=== PATIENT | female | born 1980 | race Caucasian/White ===

== ENCOUNTER 2020-03-12 09:56 | Inpatient (IN) | payer BC, OTHER ==
[2020-03-12] MEDS ORDERED: CARBOPROST TROMETHAMINE 250 MCG/ML 1 ML AMP IM PRN (11:02)
[2020-03-12] MEDS ORDERED: METHYLERGONOVINE 0.2 MG/ML 1 ML AMP IM PRN (11:02)
[2020-03-12] MEDS ORDERED: LIDOCAINE 0.5% (PF) 5 MG/ML (50 ML SDV) SQ PRN (11:02)
[2020-03-12] MEDS ORDERED: PENICILLIN G POTASSIUM 5,000,000 UNIT in DEXTROSE 5% IN WATER 100 ML IVPB STA ×2 (11:02)
[2020-03-12] MEDS ORDERED: OXYTOCIN 10 UNIT/ML 1 ML VIAL IM PRN (11:02)
[2020-03-12] MEDS ORDERED: TERBUTALINE 1 MG/ML VIAL SQ PRN (11:02)
[2020-03-12 12:03] LABS: Basophils % (A) 0 %; Eosinophils # (A) 0.1 k/uL (0-0.7); Eosinophils % (A) 1 %; HCT 37.5 % (34.0-46.0); HGB 13.2 gm/dL (11.4-16.0); Lymphocytes # (A) 1.5 k/uL (1.0-4.8); Lymphocytes % (A) 16 %; MCH 33.2 pg (25.0-35.0); MCHC 35.2 g/dL (31.0-37.0); MCV 94.2 fL (80.0-100.0); Mean Platelet Volume 10.8; Monocytes # (A) 0.5 k/uL (0-1.0); Monocytes % (A) 6 %; Neutrophils # (A) 6.6 k/uL (1.3-7.7); Neutrophils % (A) 74 %; Platelet Count 132 k/uL (150-450); RBC 3.98 m/uL (3.80-5.40); RDW 13.6 % (11.5-15.5); WBC 8.8 k/uL (3.8-10.6)
[2020-03-12] MEDS ORDERED: BUTORPHANOL 1 MG/ML 1 ML VIAL IV PRN (12:12)
--- NOTE | 2020-03-12 12:20 | P.HPOB ---
History of Present Illness H&P Date: 03/12/20 Chief Complaint: 39 and one sevenths weeks, spontaneous rupture of membranes The patient is a 39-year-old 1 para 0 admitted at 39 and one sevenths weeks as established by last menstrual period and confirmed by second trimester ultrasound. She is admitted with documented spontaneous rupture of membranes for clear fluid. Her has been essentially uncomplicated. 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 She is also known to be group B strep positive. On admission, all signs reassuring. Obstetrical history: 1 para 0 with current statistics listed in history of present illness. EDC of 03/18/2020 was established by last menstrual period and confirmed by second trimester ultrasound. Laboratory workup demonstrates a blood type of O+ with a negative antibody screen. Rubella status is immune. Remainder of the laboratory workup was within normal limits. Early Glucola as well as second trimester Glucola were within normal limits and group B strep status is positive. Gynecologic history: Unremarkable with no history of any infections to include STDs though she does have remote history of HSV for which she has had no outbreaks during the as noted in history of present illness. Review of Systems Review of systems is confined to history of present illness. Past Medical History Past Medical History: No Reported History History of Any Multi-Drug Resistant Organisms: None Reported Past Surgical History: No Surgical Hx Reported Past Anesthesia/Blood Transfusion Reactions: No Reported Reaction Smoking Status: Never smoker - Past Family History Father Family Medical History: No Reported History Medications and Allergies Allergies Allergy/AdvReac Type Severity Reaction Status Date / Time Unable to Assess Allergy Verified 03/12/20 11:02 Exam Vital Signs Temp Pulse Resp BP Pulse Ox 03/12/20 11:00 97.7 F 83 18 115/76 99 03/12/20 10:25 97.7 F 83 18 160/69 99 Intake and Output 03/11/20 03/12/20 03/12/20 22:59 06:59 14:59 Other: Weight 85.729 kg In general, this is a well-developed, well-nourished white female in no acute distress. Her heart has a regular rhythm and rate without murmur. Her lungs are clear to auscultation bilaterally in all simons. Her abdomen is gravid, non distended, has normal active bowel sounds, is soft, nontender, and without any palpable masses, hepatosplenomegaly, hernias. Her extremities are without any cyanosis, clubbing, or significant edema and are nontender to palpation bilaterally. Digital cervical examination at the time of admission demonstrates her cervix to be 2 cm dilated, 70% effaced, with the vertex in presentation at - 2 station. Spontaneous rupture of membranes is confirmed. Results Result Diagrams: 03/12/20 10:49 Abnormal Lab Results - Last 24 Hours (Table) 03/12/20 Range/Units 10:49 Plt Count 132 L (150-450) k/uL Assessment and Plan (1) Group B streptococcal infection in Current Visit: Yes Status: Acute Code(s): O98.819 - OTH MATERNAL INFEC/PARASTC DISEASES COMP PREG, UNSP TRI; B95.1 - STREPTOCOCCUS, GROUP B, CAUS ING DISEASES CLASSD [id number] SNOMED Code(s): 526057864 (2) Spontaneous rupture of amniotic membranes Current Visit: Yes Status: Acute Code(s): GXK0228 - SNOMED Code(s): 443274261 Plan: Antibiotic prophylaxis has been started for group B strep. As she has had spontaneous rupture of membranes, we will await the onset of labor on its own for approximately 2-3 hours. Should no labor begin, Pitocin augmentation will be started. The patient will continue to have close maternal and surveillance and expectant management will be practiced. She is a good candidate for either IV or epidural analgesia, whichever she may choose.
[2020-03-12] MEDS ORDERED: OXYTOCIN 30 UNITS/500 ML NS 30 UNIT in SALINE 1 500ML.BAG IV SCH (14:30)
[2020-03-12] MEDS: LACTATED RINGERS 1,000 ML IV SCH ×2 (15:00→17:05)
[2020-03-12] MEDS: PENICILLIN G POTASSIUM 2,500,000 UNIT in DEXTROSE 5% IN WATER 100 ML IVPB SCH ×4 (15:14→19:35)
[2020-03-12] MEDS ORDERED: fentaNYL (PF) 50 MCG/ML 5 ML AMP ONE (16:31)
[2020-03-12] MEDS ORDERED: SODIUM CHLORIDE 0.9% 100 ML BAG ONE (16:31)
[2020-03-12] MEDS ORDERED: ROPIVACAINE 5MG/ML 20ML VIAL ONE (16:31)
[2020-03-12] MEDS ORDERED: LACTATED RINGERS 1,000 ML IV ONE (23:58)
[2020-03-12] MEDS ORDERED: CITRIC ACID-SODIUM CITRATE 15 ML CUP PO ONE (23:58)
[2020-03-13] MEDS ORDERED: MORPHINE SULFATE (PF) 0.3 MG/0.3 ML SYR ONE (00:04)
[2020-03-13] MEDS ORDERED: ONDANSETRON 4 MG/2 ML VIAL ONE (00:04)
[2020-03-13] MEDS ORDERED: OXYTOCIN 10 UNIT/ML 1 ML VIAL ONE (00:04)
[2020-03-13] MEDS ORDERED: KETOROLAC 30 MG/ML 1 ML VIAL ONE (00:04)
[2020-03-13] MEDS ORDERED: DEXAMETHASONE SOD PHOSPHATE 10 MG/ML 1 ML VIAL ONE (00:04)
[2020-03-13] MEDS ORDERED: ONDANSETRON 4 MG/2 ML VIAL IVP PRN (01:05)
[2020-03-13] MEDS ORDERED: diphenhydrAMINE 50 MG CAP PO PRN (01:05)
[2020-03-13] MEDS ORDERED: diphenhydrAMINE 50 MG/ML 1 ML VIAL IVP PRN ×2 (01:05)
[2020-03-13] MEDS ORDERED: ZOLPIDEM 5 MG TAB PO PRN (01:05)
[2020-03-13] MEDS ORDERED: diphenhydrAMINE 25 MG CAP PO PRN (01:05)
[2020-03-13] MEDS ORDERED: SIMETHICONE 80 MG CHEWABLE PO PRN (01:05)
[2020-03-13] MEDS ORDERED: ACETAMINOPHEN TAB 325 MG TAB PO PRN (01:05)
[2020-03-13] MEDS ORDERED: METOCLOPRAMIDE 5 MG/ML 2 ML VIAL IVP PRN (01:05)
[2020-03-13] MEDS ORDERED: HYDROcodone/APAP 5-325MG 1 EACH TAB PO PRN (01:05)
[2020-03-13] MEDS ORDERED: LANOLIN CREAM 5 GM TUBE TOPICAL PRN (01:05)
[2020-03-13] MEDS ORDERED: KETOROLAC 30 MG/ML 1 ML VIAL IVP PRN (01:05)
[2020-03-13] MEDS ORDERED: NALOXONE 0.4 MG/ML 1 ML VIAL IV PRN (01:05)
--- NOTE | 2020-03-13 01:14 | P.OP ---
Date of Procedure: 03/13/20 Preoperative Diagnosis: #1. 39-3/7 weeks, spontaneous rupture, labor #2. Advanced maternal age #3. Group B strep colonization #4. Arrest of descent #5. right occiput transverse Postoperative Diagnosis: Same Procedure(s) Performed: #1. Primary low-transverse section Anesthesia: epidural Surgeon: Waldemar Malloy Barker Operator #1: Rebecca Owens Estimated Blood Loss (ml): 600 IV fluids (ml): 900 Urine output (ml): 200 Pathology: none sent Condition: stable Disposition: floor Operative Findings: Preoperatively, the patient had reached complete after a significantly slow active phase of labor. She pushed for approximately 1-1/2-2 hours and brought the head to approximately 0 to perhaps +1 station where it arrested for 30-45 minutes. The head was felt to be in the right occiput transverse position and the patient was felt to have a slightly contracted pelvis. Given these findings, we discussed options and the patient opted to proceed with primary low-transverse section. She was taken to the operating room where she was delivered of a viable 7 lbs. 8 oz. baby boy with Apgars of 8 at 1 minute and 9 at 5 minutes delivered in the right occiput transverse position. The cord was relatively short. The placenta was delivered manually, intact, and grossly normal with a grossly normal though short three-vessel cord. The uterus, tubes, and ovaries were entirely normal to inspection. Description of Procedure: The patient was prepped and draped in usual fashion after epidural anesthesia was bolused by the anesthesiologist. A Pfannenstiel incision was made and extended into the abdominal cavity without difficulty. The bladder peritoneum was elevated, incised, and reflected distally. A 2 cm incision was made in the transverse plane of the lower uterine segment to enter the uterus at which time clear fluid was noted. The head was encountered deep within the pelvis in the right occiput transverse position, elevated up and through the incision where the nose and mouth were thoroughly suctioned. Remainder of the infant was delivered onto the field where the nose and mouth were again thoroughly suctioned and the cord was doubly clamped, cut, and the passed for resuscitative measures with weight and Apgars as noted above. The placenta was delivered manually and intact as noted above. The uterus was exteriorized and the interior cavity of uterus swept of any remaining placental or membranous fragments per the margins of the incision were grasped with Cronin clamps and the incision closed in 2 layers. The first layer was a running locking stitch of 0 chromic catgut followed by a running imbricating stitch of 0 chromic catgut. The posterior cul-de-sac was suctioned using a guard and the uterus and ovaries were entirely normal to inspection as were the tubes bilaterally. Uterus was replaced within the abdominal cavity and the gutters swept of any remaining blood, fluid, or clot. The incision was reexamined and found to have some bleeding at the right angle of the incision which was made hemostatic with a avdlnv-ya-mzkny stitch of 0 chromic catgut. At that point, hemostasis was noted to be excellent. The parietal peritoneum was loosely reapproximated and layer of muscles examined and found to be hemostatic. The fascia was closed with 2 running stitches of 0 Vicryl beginning at each margin and meeting in the midline. The subcutaneous tissues were irrigated, made hemostatic with the Bovie, and closed with a running stitch of 30 plain catgut. The skin was reapproximated with a running subcuticular stitch of 4-0 Vicryl from margin to margin followed by half-inch Steri-Strips placed with Mastisol. Estimated blood loss for the case was approximately 600 mL. There were no complications. All sponge, instrument, needle counts were correct. Both mother and are resting comfortably in recovery.
[2020-03-13] MEDS ORDERED: OXYTOCIN 20 UNITS/1000 ML NS 1,000 ML IV SCH (01:15)
[2020-03-13 01:31] VITALS: RESP 16
[2020-03-13] MEDS: PENICILLIN G POTASSIUM 2,500,000 UNIT in DEXTROSE 5% IN WATER 100 ML IVPB SCH ×2 (01:55)
[2020-03-13] MEDS: LACTATED RINGERS 1,000 ML IV SCH ×2 (01:56→09:09)
[2020-03-13] MEDS: IBUPROFEN 600 MG TAB PO PRN (16:50)
[2020-03-13] MEDS: SENNOSIDES-DOCUSATE SODIUM 1 EACH TAB PO SCH (20:25)
[2020-03-14] MEDS: HYDROcodone/APAP 7.5-325MG 1 EACH TAB PO PRN ×2 (05:58→13:11)
[2020-03-14 06:07] LABS: Basophils % (A) 0 %; Eosinophils # (A) 0.1 k/uL (0-0.7); Eosinophils % (A) 1 %; HCT 27.2 % (34.0-46.0); Lymphocytes # (A) 1.6 k/uL (1.0-4.8); Lymphocytes % (A) 16 %; MCH 32.8 pg (25.0-35.0); MCHC 34.3 g/dL (31.0-37.0); MCV 95.7 fL (80.0-100.0); Mean Platelet Volume 10.3; Monocytes # (A) 0.4 k/uL (0-1.0); Monocytes % (A) 4 %; Neutrophils # (A) 7.8 k/uL (1.3-7.7); Neutrophils % (A) 78 %; Platelet Count 120 k/uL (150-450); RBC 2.84 m/uL (3.80-5.40); RDW 13.8 % (11.5-15.5)
[2020-03-14 06:14] LABS: HGB 9.3 gm/dL (11.4-16.0)
--- NOTE | 2020-03-14 07:30 | P.PN ---
Progress Note - Text Progress Note Date: 03/14/20 Postoperative day 1 status post section under epidural anesthesia, and epidural morphine given for postoperative analgesia, patient doing well, there is no anesthesia related complications, Patient had no headache, vital signs stable , Assessment and plan= postop day 1 status post , doing well there is no anesthesia related complication. note= patient was seen at 06:45 today.
[2020-03-14 07:52] VITALS: TEMP 98.3
[2020-03-14] MEDS: SENNOSIDES-DOCUSATE SODIUM 1 EACH TAB PO SCH (07:58)
--- NOTE | 2020-03-14 08:24 | P.PNOBGPC ---
Subjective - Subjective Principal diagnosis: POD 1 LTCS Interval history: Patient is doing well. She is ambulating and voiding without difficulty. She is tolerating a regular diet without nausea or vomiting. She is slightly more painful this morning but pain medication is helping this a.m. Lochia is minimal. She is breast-feeding without difficulty. We are considering discharge home early evening, as she is not sleeping well here. Patient reports: Reports appetite normal, Reports voiding normally, Reports pain well controlled, Reports ambulating normally : doing well, nursing well Objective - Vital Signs Latest vital signs: Vital Signs Temp Pulse Resp BP Pulse Ox 03/14/20 07:50 98.3 F 97 16 118/66 97 03/14/20 00:00 98.0 F 104 H 16 129/74 98 03/13/20 20:00 98.0 F 98 16 116/67 03/13/20 17:00 98.3 F 110 H 16 121/64 98 03/13/20 12:00 98.0 F 94 16 128/80 97 Intake and Output 03/13/20 03/14/20 03/14/20 22:59 06:59 14:59 Output Total 650 Balance -650 Output: Urine 650 Other: # Voids 1 1 1 - Exam Extremities: Present: normal, edema Abdomen: Present: normal appearance Incision: Present: normal, dry, intact - Labs Labs: Abnormal Lab Results - Last 24 Hours (Table) 03/14/20 Range/Units 05:56 RBC 2.84 L (3.80-5.40) m/uL Hgb 9.3 L D (11.4-16.0) gm/dL Hct 27.2 L (34.0-46.0) % Plt Count 120 L (150-450) k/uL Neutrophils # 7.8 H (1.3-7.7) k/uL Assessment and Plan (1) Advanced maternal age (AMA) in Current Visit: Yes Status: Acute Code(s): IYA2176 - SNOMED Code(s): 763330119 (2) Arrest of descent, delivered, current hospitalization Current Visit: Yes Status: Acute Code(s): O62.1 - SECONDARY UTERINE INERTIA SNOMED Code(s): 61060147 (3) malposition, delivered, current hospitalization Current Visit: Yes Status: Acute Code(s): O32.9XX0 - MATERNAL CARE FOR MALPRESENTATION OF FETUS, UNSP, UNSP SNOMED Code(s): 524851889 (4) Group B streptococcal infection in Current Visit: Yes Status: Acute Code(s): O98.819 - OTH MATERNAL INFEC/PARASTC DISEASES COMP PREG, UNSP TRI; B95.1 - STREPTOCOCCUS, GROUP B, CAUSING DISEASES CLASSD ELSR SNOMED Code(s): 447518818 (5) Herpes genitalis in women Current Visit: Yes Status: Acute Code(s): A60.09 - HERPESVIRAL INFECTION OF OTHER UROGENITAL TRACT SNOMED Code(s): 625154492 (6) S/P section Current Visit: Yes Status: Acute Code(s): Z98.891 - HISTORY OF UTERINE SCAR FROM PREVIOUS SURGERY SNOMED Code(s): 224344801 (7) Spontaneous rupture of amniotic membranes Current Visit: Yes Status: Acute Code(s): DYQ5884 - SNOMED Code(s): 757020072 Plan: This 39-year-old 1 now para 1 is overall doing well postoperatively. She is ambulating and voiding without difficulty and I do feel she is stable for discharge home. She is going to work on breast-feeding today, we will assess her pain later this afternoon and consider discharge home early evening.
[2020-03-14] MEDS: IBUPROFEN 600 MG TAB PO PRN ×2 (09:13→16:38)
[2020-03-14 15:37] VITALS: BP 134/73; PULSE 95
--- NOTE | 2020-03-15 08:36 | P.DS ---
Providers Date of admission: 03/12/20 10:30 Expected date of discharge: 03/14/20 Attending physician: Meryl Bonilla Primary care physician: Stated None - Discharge Diagnosis(es) (1) Advanced maternal age (AMA) in Status: Acute (2) Arrest of descent, delivered, current hospitalization Status: Acute (3) malposition, delivered, current hospitalization Status: Acute (4) Group B streptococcal infection in Status: Acute (5) Herpes genitalis in women Status: Acute (6) S/P section Status: Acute (7) Spontaneous rupture of amniotic membranes Status: Acute Hospital Course: This pleasant 39-year-old 1 now para 1 presented to the hospital with complaints of rupture of membranes at 39-3/7 weeks. Patient was admitted to labor and delivery after IV antibiotics were begun for group beta strep positive cultures Pitocin was begun. Patient made very slow progress through labor eventually requesting epidural placement. Epidural was placed by the anesthesia department. Patient progressed to complete began pushing and after approximate 1-1-1/2 hours arrest of descent was noted. Patient was counseled on primary C- section secondary to arrest of descent and she agreed. Patient was taken back to the operating suite where primary low transverse section was performed without difficulty. For further details on the please see the operative report. Patient had a liveborn male 7 lbs. 8 oz. with Apgars of 8 and 9 at one and 5 minutes respectively. Patient's course has been uneventful. Patient is ambulating and voiding without difficulty. She is tolerating a regular diet without nausea or vomiting. She is struggling with insomnia and has had minimal sleep. Patient states her pain is well-controlled. She is breast-feeding without difficulty. She does desire discharge home Patient Condition at Discharge: Good Plan - Discharge Summary Follow up Appointment(s)/Referral(s): Meryl Bonilla DO [Doctor of Osteopathic Medicine] - 2 Weeks Patient Instructions/Handouts: (DC) Discharge Disposition: HOME SELF-CARE
== END 2020-03-14 19:04 | disposition home or self-care (01) | DRG 787 ==
LOC: FBPOP 09:56 → 4FBP 10:30
PROVIDERS: ADMIT Obstetrics & Gynecology; ATTEND Obstetrics & Gynecology Obstetrics
PROC: 00HU33Z Insertion of Infusion Device into Spinal Canal, Percutaneous Approach (ICD-10-PCS; principal; 2020-03-12)
PROC: 3E0R3BZ Introduction of Anesthetic Agent into Spinal Canal, Percutaneous Approach (ICD-10-PCS; principal; 2020-03-12)
PROC: 10D00Z1 Extraction of Products of Conception, Low, Open Approach (ICD-10-PCS; principal; 2020-03-12)
DX: O99.824 Streptococcus B carrier state complicating childbirth (principal); O98.32 Other infections with a predominantly sexual mode of transmission complicating childbirth; O99.354 Diseases of the nervous system complicating childbirth; O62.1 Secondary uterine inertia; G47.00 Insomnia, unspecified; A60.00 Herpesviral infection of urogenital system, unspecified; Z37.0 Single live birth; Z3A.39 39 weeks gestation of pregnancy
CPT/HCPCS: 59025; 85025; 86850; 86900; 86901; 99213

== ENCOUNTER → 2024-11-30 | Outpatient (CLI) | payer OTHER ==
--- NOTE | 2024-11-30 12:18 | MM ---
Reason for Exam: Screening (asymptomatic). Baseline mammogram. Patient History: Menarche at age 9. First Full-Term at age 40. Late child-bearing (after 30). Last menstrual period: 11/06/2024 Risk Values: Kassi 5 year model risk: 1.2%. NCI Lifetime model risk: 14.2%. Prior Study Comparison: Patient's first Mammogram. No prior studies available for comparison. Tissue Density: There are scattered areas of fibroglandular density. Findings: Analyzed By CAD. There is a 9 mm gently lobulated, circumscribed nodule posterior upper outer right breast, suspected to represent a low axillary lymph node. There is no prior for comparison purposes, six-month follow-up is recommended to ensure stability. Otherwise, no significant mass, suspicious microcalcification, or other discrete abnormality is seen. A benign oil cyst calcification is present on either side. Overall Assessment: Probably benign, BI-RAD 3 Management: Diagnostic Mammogram of the right breast in 6 months. Patient should continue monthly self-breast exams. A clinical breast exam by your physician is recommended on an annual basis. This exam should not preclude additional follow-up of suspicious palpable abnormalities. Note on Kassi scores and lifetime risk: 1. A Kassi score greater than 3% is considered moderate risk. If this is the case, consider specialist referral to assess eligibility for a risk reducing agent. 2. If overall lifetime risk for the development of breast cancer is 20% or higher, the patient may qualify for future screening with alternating mammogram and breast MRI. [facility], , 11/30/2024 12:16 PM. Electronically signed and approved by: Sandra Gamboa M.D. Radiologist
== END | disposition home or self-care (01) ==
LOC: RADMAMWWP 08:54
PROVIDERS: ATTEND Family Medicine
DX: Z12.31 Encounter for screening mammogram for malignant neoplasm of breast (principal); R92.323 Mammographic fibroglandular density, bilateral breasts
CPT/HCPCS: 77063; 77067